=== PATIENT | female | born 1955 | race Caucasian/White ===

== ENCOUNTER 2021-11-10 14:05 | Outpatient (REF) | payer MEDICARE, SELFPAY ==
--- NOTE | ~2021-11-10 | CT_ITS ---
EXAMINATION: CT ANGIOGRAM HEAD AND NECK CLINICAL INFORMATION: Headache COMPARISON: Brain MRI 06/08/2005 TECHNIQUE: Noncontrast head CT was acquired. Test bolus sequences followed by intravenous administration 70 mL of Omnipaque 350 intravenous contrast. Helical imaging was performed in the axial plane from the mediastinum to the skull vertex. Delayed postcontrast imaging of the head was also performed. The data was processed at the molecular technologist's workstation for generation of MIP sequences. Three-dimensional volume rendered reformatted images were also generated at an offline 3-D workstation. This CT examination was performed using dose optimization techniques as appropriate, variously including the following: *Automated exposure control *Adjustment of mA and/or kV according to patient size (this includes techniques or standardized protocols for targeted exams where dose is matched to indication/reason for exam; i.e. extremities or head) *Use of iterative reconstruction technique DLP: 2117 mGy-cm FINDINGS: HEAD: No intracranial mass, intercerebral edema, hemorrhage, or midline shift is evident. The ventricles and sulci are stable in size and configuration. No extra-axial collections are appreciated. The paranasal sinuses are well aerated and clear. SOFT TISSUES AND LUNG APICES: Globes and retro-orbital structures are unremarkable. Normal appearance of the nutritional services host space and parapharyngeal fat. Major salivary glands and thyroid gland are unremarkable. No cervical lymphadenopathy. No mucosal space mass identified. Small 5 mm pleural-based nodule in the posterior right upper lobe on series 15-518 and 3 mm right apical nodule (please see morocho images). Lung apices otherwise clear. No acute fracture or suspicious osseous lesion. Advanced degenerative disc disease at C5-C6 and C6-C7. Milder disc degenerative changes in the upper thoracic spine. Likely chronic anterior wedge compression deformity of T7. Incompletely imaged left rib fracture deformities and evidence of prior left rib plating. NECK CTA: Normal caliber aortic arch. Normal three-vessel configuration of the great vessels. Arch origins are patent. Minimal luminal narrowing due to noncalcified plaque in the proximal left subclavian artery. Right subclavian arteries widely patent. Patent bilateral vertebral arteries with right-sided dominance. Common carotid arteries are widely patent. Coarse calcified plaque in the right carotid bifurcation and proximal ICA without luminal narrowing. Left carotid bifurcation is widely patent. Streak artifact from dental hardware at the level of the mandible. The cervical portions of the internal carotid arteries are widely patent bilaterally. CRANIAL CTA: Posterior circulation: Patent intradural right vertebral artery. The intradural left vertebral artery terminates primarily as a left PICA. Diminutive left vertebral artery is followed to the patent basilar. AICAs are patent bilaterally. SCA's are patent. Patent posterior communicating arteries bilaterally. Persistent circulation on the right with hypoplastic right P1 [employer] segment. Bilateral posterior cerebral arteries are widely patent. Anterior circulation: The petrous, cavernous and supraclinoid ICAs are patent. Anterior and middle cerebral arteries are patent. No aneurysm. Patent anterior communicating artery without aneurysm. No hemodynamically significant stenosis. No vascular malformation. Scant calcification of the cavernous carotid arteries bilaterally. Major dural venous sinuses opacify normally. CT/CT angio head neck IMPRESSION: 1. No intracranial hemorrhage, mass, or abnormal intracranial enhancement. 2. No aneurysm or vascular malformation. No evidence of dissection. 3. No hemodynamically significant arterial stenosis. 4. Patent major dural venous sinuses.
[2021-11-10] MEDS: iohexoL 350 MG/ML 100 ML INFUS..BTL IV (15:40)
== END 2021-11-10 14:06 | disposition home or self-care (01) ==
LOC: HO.CT 14:05
PROVIDERS: PCP Internal Medicine; Visit Provider Internal Medicine
DX: R51.9 Headache, unspecified (principal)
CPT/HCPCS: 70496; 70498; Q9967

== ENCOUNTER 2022-01-06 10:43 | Outpatient (REF) | payer MEDICARE, SELFPAY ==
--- NOTE | ~2022-01-06 | MM_ITS ---
EXAMINATION: BONE DENSITOMETRY CLINICAL INDICATION: Other specified disorders of bone density and structure. COMPARISON: Previous BD dated 08/03/2017 and baseline BD dated 11/11/2007. TECHNIQUE: Using a [employer] DXA System (software version: 13.1) manufactured by [email or web address], dual-energy x-ray absorptiometry was performed of the lumbar spine and left hip. The images are of good technical quality. Summary results are attached. FINDINGS: AP SPINE L1-L4: Current: BMD 1.175 g/cm2, Z-score 1.8, T-score 0.0, normal, 1.0% decrease from previous, 11.0% increase from baseline (<5% change is not significant). Prior: BMD 1.187 g/cm2. Baseline: BMD 1.059 g/cm2. LEFT FEMUR, NECK: Current: BMD 0.858 g/cm2, Z-score 0.5, T-score -1.3, osteopenia. Prior: BMD 0.849 g/cm2. Baseline: BMD 0.857 g/cm2. LEFT FEMUR, TOTAL: Current: BMD 0.858 g/cm2, Z-score 0.4, T-score -1.2, osteopenia, 6.2% decrease from previous, 3.2% decrease from baseline (<5% change is not significant). Prior: BMD 0.915 g/cm2. Baseline: BMD 0.886 g/cm2. IDENTIFIED RISK FACTORS: Height loss, history of fracture (adult), menopause. HISTORY OF FRACTURE: Humerus/shoulder. Clavicle, ribs/scapula. MEDICATIONS: Calcium supplements or multivitamin, vitamin D. MM/XR DEXA axial skeleton IMPRESSION: 1. DIAGNOSIS: Osteopenia based on the lowest T-score value of -1.3 in the femoral neck applying World Health Organization criteria. 2. 10-YEAR FRACTURE RISK PREDICTION, FRAX: Major osteoporotic fracture (clinical spine, forearm, hip or shoulder) 13.9%. Hip fracture 1.7%. 3. Treatment Recommendations: NOF guidelines recommend consideration for treatment in postmenopausal women and men age 50 and older presenting with the following: -A hip or vertebral (clinical or morphometric) fracture. -T-score less than or equal to -2.5 at the femoral neck or spine after appropriate evaluation to exclude secondary causes. -Low bone mass at the hip or spine and a 10-year fracture probability by FRAX of greater than or equal to 3% for hip fracture or greater than or equal to 20% for major osteoporotic fracture based on the [place] adapted WHO algorithm. 4. Other Recommendations: All treatment decisions require clinical judgment and consideration of individual patient factors, including patient preferences, comorbidities, previous drug use, risk factors not captured in the FRAX model (e.g. frailty, falls, vitamin D deficiency, increased bone turnover, interval significant decline in bone density) and possible under or overestimation of fracture risk by FRAX. Additional medical evaluation for secondary cause of low bone mineral density may be appropriate. FUTURE SCAN RECOMMENDATION: People with diagnosed cases of osteoporosis or at high risk for fracture should have regular bone mineral density tests. For patients eligible for Medicare, routine testing is allowed once every 2 years. The testing frequency can be increased to one year for patients who have rapidly progressing disease, those who are receiving or discontinuing medical therapy to restore bone mass, or have additional risk factors.
== END 2022-01-06 10:44 | disposition home or self-care (01) ==
LOC: HO.MAMMO 10:43
PROVIDERS: PCP Internal Medicine; Visit Provider Internal Medicine
DX: Z13.820 Encounter for screening for osteoporosis (principal); M85.852 Other specified disorders of bone density and structure, left thigh; Z78.0 Asymptomatic menopausal state
CPT/HCPCS: 77080

== ENCOUNTER 2022-10-31 09:28 | Outpatient (AMB) | payer MEDICARE, SELFPAY ==
[2022-10-31 09:31] VITALS: BP 118/76; PULSE 68; O2SAT 98; BMI 21.1
--- NOTE | 2022-10-31 09:31 | AM.OFFVISMDC ---
Intake Vital Signs 10/31/22 09:31 Height 5 ft 6 in Weight 131 lb BMI 21.1 BP 118/76 Blood Pressure Location Lt brachial Position Sitting Pulse 68 Pulse Source Pulse Oximeter Pulse Oximetry (%) 98 Oxygen Delivery Method Room Air Intake Visit Reasons: SWV Intake Note: Pt is here today for AWV. Allergies No Known Allergies [No Known Allergies*] Allergy (Verified 10/31/22 09:34) Medication List - Last Reconciled 10/31/22 by Traci Gomez MD gabapentin 300 mg PO DAILY lorazepam 0.5 mg PO DAILY PRN NS simvastatin 40 mg PO BEDTIME HPI SWV HPI Details Pt presents for annualInitiated the conversation about Advanced Directives. Advanced Directives help? patients prepare for current and future decisions about their medical treatment? and place of care. Discussed with patient that it is a process where a patients? current condition and prognosis are reviewed, their wishes for information? regarding their illness are elicited, and likely medical dilemmas are presented? and options discussed. The form can be amended as needed, reviewed yearly and? make changes as needed IPPE/AWV ? year old presents? for her ? Annual? Wellness Visit, initial visit.? Medical / Social History Reviewed? Past Medical History ?Yes? . ? [place]? of Care / Care Team list updated ?Yes . ? Surgical/Hospitalization? History ?Yes . ? Current Medications? (including OTC and supplements) ?Yes . ? Family History ?Yes? . ? Tobacco? Control form ?Yes . ? AUDIT-C (Alcohol use) form? ?Yes . ? Illicit drug use in Social? History ?Yes . ? Current diagnosis of? depression? ?No ? Appropriate PHQ2/PHQ9? completed ?Yes . ? Data entered by ?Medical? Furnace Door Tender and reviewed by provider ? Fall Risk ? Fall? History? Have you had any falls with? injury in the past year? ?No . ? Have you had two or more? falls in the past year? ?No . ? Fall Risk Assessment: ?No? falls in the past year . ? HRA filled out by? the patient, reviewed by Provider and scanned. ? IPPE/AWV ? Balance? [place]? ?Yes . ? Tandem? walk ?Yes . ? Walk and? Turn ?Yes . ? Rise from? sit to stand ?Yes . ?Vision? Corrective? lens ?Yes ? Vision? screen ? Up-to-date, has an appointment [] for vision? screening and glaucoma screening ?Hearing? Whisper? test ?pass .? Initiated the conversation about Advanced Directives. Advanced Directives help? patients prepare for current and future decisions about their medical treatment? and place of care. Discussed with patient that it is a process where a patients? current condition and prognosis are reviewed, their wishes for information? regarding their illness are elicited, and likely medical dilemmas are presented? and options discussed. The form can be amended as needed, reviewed yearly and? make changes as needed Written? Plan?Completed. See Patient? Documents. [facility] Medical History Annual physical exam Anxiety Arm pain, left Finger fracture, right Hyperlipidemia Normal colonoscopy Normal Pap smear Osteopenia of left femoral neck Sinusitis Stress incontinence in female Surgical History History of arthroscopy of right shoulder Status post lumbar spine surgery for decompression of spinal cord Family History (Updated 10/31/22 @ 09:37 by Vashti Hall Nena) Father Cancer Mother COPD (chronic obstructive pulmonary disease) Brother Substance use disorder Sister Substance use disorder Social History Housing: House Alcohol intake: current Alcohol intake frequency: holidays/special occasions only Alcohol type: hard liquor Patient Tobacco Use Status: Never used Tobacco e-Cigarette/Vaping Use: Never Used Current occupational status: employed Cognitive needs: No Hearing needs: No Vision needs: No Questionnaire Medicare Wellness Checkup [age] What gender do you identify with?: female During the past 4 weeks, how much have you been bothered by emotional problems such as feeling anxious, depressed, irritable, sad or downhearted, and blue?: not at all During the past 4 weeks, has your physical & emotional health limited your social activities with family, friends, neighbors, or groups?: not at all During the past 4 weeks, how much bodily pain have you generally had?: no pain During the past 4 weeks, was someone available to help you if you needed & wanted help?: yes, as much as I wanted During the past 4 weeks, what was the hardest physical activity you could do for at least 2 minutes?: very heavy Can you get to places out of walking distance without help? (For eg., can you travel alone on buses, taxis or drive your car?): Yes Can you go shopping for groceries or clothes without someone's help?: Yes Can you prepare your own meals?: Yes Can you do your housework without help?: Yes Because of any health problems, do you need the help of another person with your personal care needs such as eating, bathing, dressing or getting around the house?: No Can you handle your own money without help?: Yes During the past 4 weeks, how would you rate your health in general?: excellent During the past 4 weeks how have things been going for you?: very well; could hardly better Are you having difficulties driving your car?: no Do you always fasten your seat belt when you are in a car?: yes, usually During past 4 weeks, have you been bothered by the following: never: Falling or dizzy when standing up, Sexual problems?, Trouble eating well?, Teeth or denture problems?, Problems using the telephone? and Tiredness or fatigue? Have you fallen 2 or more times in the past year?: No Are you afraid of falling?: No Are you a smoker?: no During the past 4 weeks, how many drinks of wine, beer, or other alcoholic beverages did you have?: no alcohol at all Do you exercise for about 20 minutes 3 or more times a week?: yes, most of the time Have you been given information to help with the following?: no: Hazards in your house that might hurt you? and no: Keeping track of your medications? How often do you have trouble taking medicines the way you have been told to take them?: I always take medicine as prescribed How confident are you that you can control & manage most of your health problems?: very confident What is your race?: White Mini Mental State Exam (MMSE) Orientation What is the (year) (season) (date) (day) (month)?: year, season, date, day and month Where are we (state) (county) (town or city) (hospital) (floor)?: state, town or city, hospital/clinic and floor Registration Name of 3 unrelated objects clearly and slowly, then ask patient to repeat all 3 of them. (1st repeat determines score. Make sure they can repeat all three): object 1, object 2 and object 3 Attention & Calculation (CHOOSE ONE) Spell WORLD backwards (DLROW): 5 letters Recall Ask patient to repeat the 3 items from question #3.: object 1, object 2 and object 3 Language Show patient a wristwatch & ask what it is. Repeat for pencil.: watch and pencil Ask the patient to repeat the phrase 'No ifs, ands, or buts' after you.: correct Ask the patient to 'take a piece of paper with their right hand' 'fold paper in half' 'place paper on floor': take paper in right hand, fold paper in half and place paper on floor Print the sentence 'CLOSE YOUR EYES' on a piece. If patient actually closes eyes then score.: followed written direction Give patient a blank piece of paper & ask to write a sentence. Score if it contains a noun & verb.: sentence contains subject and verb Score Score: 28 Activity of Daily Living Bathing - sponge bath, tub bath or shower: receives no assistance (gets in/out by self, if usual bathing means Dressing - getting clothes from closets & drawers, including inner/outer garments & fasteners.: gets clothes & gets completely dressed without help Toileting - going to the 'toilet room' for urine/bowel elimination & cleaning self/arranging clothes: goes to toilet room, cleans self, arranges clothes without help Transfer: moves in & out of bed and chair without help (may use support object) Continence: controls urination/bowel movements completely by self Feeding: feeds self without help Total Score: 0 Information obtained from: patient Using telephone: independent Traveling: independent Shopping: independent Preparing meals: independent Housework: independent Taking medicine: independent Managing money: independent PHQ-9 Over the last 2 weeks, how often have you been bothered by any of the following problems? 1. Little interest or pleasure in doing things: not at all 2. Feeling down, depressed, or hopeless: not at all 3. Trouble falling or staying asleep, or sleeping too much: several days 4. Feeling tired or having little energy: not at all 5. Poor appetite or overeating: not at all 6. Feeling bad about yourself - or that you are a failure or have let yourself or your family down: not at all 7. Trouble concentrating on things, such as reading the newspaper or watching television: not at all 8. Moving or speaking so slowly that other people could have noticed. Or the opposite - being so fidgety or restless that you have been moving around a lot more than usual: not at all 9. Thoughts that you would be better off or of hurting yourself in some way: not at all Total score: 1 Depression Screening Interpretation: Negative Source: Developed by Drs. David Hurtado, Afshan Miranda, Quintin Winkler and colleagues, with an educational mary from [employer]. Review of Systems Const All systems reviewed & are unremarkable except as noted in HPI and below Reports no additional complaints Eyes Reports no additional complaints ENT Reports no additional complaints Card Reports no additional complaints Resp Reports no additional complaints GI Reports no additional complaints Reports no additional complaints Musc Reports no additional complaints Physical Exam Vital Signs: Last Vital Signs Pulse 68 10/31/22 09:31 BP 118/76 10/31/22 09:31 Pulse Ox 98 10/31/22 09:31 Oxygen Delivery Method Room Air 10/31/22 09:31 BMI result Body Mass Index 21.1 Const General: no acute distress HEENT Head: Yes normal to inspection Eyes General: appearance normal, both eyes and all related structures Neck Neck: Yes no lymphadenopathy and Yes supple Resp Effort & Inspection: normal respiratory effort Auscultation: clear to auscultation bilaterally Cardio Rhythm: regular rhythm Heart sounds: S1 normal heart sound present and S2 normal heart sound present GI Inspection: Yes normal to inspection Palpation (GI): Soft to palpation Percussion: Yes normal to percussion Auscultation: normal bowel sounds Assessment & Plan Assessment & Plan (1) Vitamin D deficiency: Code(s): E55.9 - Vitamin D deficiency, unspecified Plan: Patient will take 1000 units of vitamin-D 3 only in the wintertime (2) Hypothyroid: Code(s): E03.9 - Hypothyroidism, unspecified Plan: Monitor TSH (3) Hyperlipidemia: Code(s): E78.5 - Hyperlipidemia, unspecified Plan: Continue simvastatin (4) Annual physical exam: Code(s): Z00.00 - Encounter for general adult medical examination without abnormal findings Plan: Well-balanced diet ,regular physical activity discussed with the patient. she is up-to-date with the mammogram colonoscopy. 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 Panel Fast 365 Days E03.9 - Hypothyroidism, unspecified, E55.9 - Vitamin D deficiency, unspecified, E78.5 - Hyperlipidemia, unspecified, Z00.00 - Encounter for general adult medical examination without abnormal findings Complete Blood Count Auto Diff 365 Days E03.9 - Hypothyroidism, unspecified, E55.9 - Vitamin D deficiency, unspecified, E78.5 - Hyperlipidemia, unspecified, Z00.00 - Encounter for general adult medical examination without abnormal findings Lipid Panel 365 Days E03.9 - Hypothyroidism, unspecified, E55.9 - Vitamin D deficiency, unspecified, E78.5 - Hyperlipidemia, unspecified, Z00.00 - Encounter for general adult medical examination without abnormal findings TSH reflex Free T4 365 Days E03.9 - Hypothyroidism, unspecified, E55.9 - Vitamin D deficiency, unspecified, E78.5 - Hyperlipidemia, unspecified, Z00.00 - Encounter for general adult medical examination without abnormal findings Vitamin D 25-OH Total 365 Days E03.9 - Hypothyroidism, unspecified, E55.9 - Vitamin D deficiency, unspecified, E78.5 - Hyperlipidemia, unspecified, Z00.00 - Encounter for general adult medical examination without abnormal findings Quality Reporting (2019) Depression/Bipolar (159/160/161/177) PHQ-9: Total score: 1 Coding Level of Care Code Medicare Subsequent (G0439) Diagnoses Vitamin D deficiency E55.9 Hypothyroid E03.9 Hyperlipidemia E78.5 Annual physical exam Z00.00 CPT Codes Advance Care Planning - Time spent: 1-15 minutes, not on file ([id number]) Advance Care Planning Advance Care Planning discussion: Exists, not on file Forms completed: Health Care Proxy Time spent: 1-15 minutes, not on file
== END 2022-10-31 10:38 | disposition home or self-care (01) ==
PROVIDERS: Visit Provider Internal Medicine
DX: Z00.00 Encounter for general adult medical examination without abnormal findings (principal); E55.9 Vitamin D deficiency, unspecified; E03.9 Hypothyroidism, unspecified; E78.5 Hyperlipidemia, unspecified
CPT/HCPCS: 1124F; G0439

== ENCOUNTER 2023-11-06 08:49 | Outpatient (AMB) | payer MEDICARE, SELFPAY ==
--- NOTE | 2023-11-06 08:59 | AM.OFFVISMDC ---
Intake Vital Signs 11/06/23 09:00 Height 5 ft 6 in Weight 132 lb BMI 21.3 BP 122/70 Blood Pressure Location Lt brachial Position Sitting Pulse 73 Pulse Source Pulse Oximeter Pulse Oximetry (%) 98 Oxygen Delivery Method Room Air Intake Visit Reasons: SWV Intake Note: Pt is here today for her SWV Allergies No Known Allergies [No Known Allergies*] Allergy (Verified 11/06/23 09:01) Medication List - Last Reconciled 11/06/23 by Traci Gomez MD diclofenac sodium 50 mg PO BID gabapentin 300 mg PO DAILY lorazepam 0.5 mg PO DAILY PRN NS simvastatin 40 mg PO BEDTIME HPI SWV HPI Details Patient presents for annual visit. She complains of insomnia on and off for 2 years. Patient has been taking melatonin and Benadryl but is concerned about becoming dependent on them. She is not aware of any triggering problems. 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 Initiated the conversation about Advanced Directives. Advanced Directives help? patients prepare for current and future decisions about their medical treatment? and place of care. Discussed with patient that it is a process where a patients? current condition and prognosis are reviewed, their wishes for information? regarding their illness are elicited, and likely medical dilemmas are presented? and options discussed. The form can be amended as needed, reviewed yearly and? make changes as needed IPPE/AWV ? year old presents? for her ? Annual? Wellness Visit, initial visit.? Medical / Social History Reviewed? Past Medical History ?Yes? . ? [place]? of Care / Care Team list updated ?Yes . ? Surgical/Hospitalization? History ?Yes . ? Current Medications? (including OTC and supplements) ?Yes . ? Family History ?Yes? . ? Tobacco? Control form ?Yes . ? AUDIT-C (Alcohol use) form? ?Yes . ? Illicit drug use in Social? History ?Yes . ? Current diagnosis of? depression? ?No ? Appropriate PHQ2/PHQ9? completed ?Yes . ? Data entered by ?[facility] and reviewed by provider ? Fall Risk ? Fall? History? Have you had any falls with? injury in the past year? ?No . ? Have you had two or more? falls in the past year? ?No . ? Fall Risk Assessment: ?No? falls in the past year . ? HRA filled out by? the patient, reviewed by Provider and scanned. ? IPPE/AWV ? Balance? [place]? ?Yes . ? Tandem? walk ?Yes . ? Walk and? Turn ?Yes . ? Rise from? sit to stand ?Yes . ?Vision? Corrective? lens ?Yes ? Vision? screen ? Up-to-date, has an appointment [] for vision? screening and glaucoma screening ?Hearing? Whisper? test ?pass .? Initiated the conversation about Advanced Directives. Advanced Directives help? patients prepare for current and future decisions about their medical treatment? and place of care. Discussed with patient that it is a process where a patients? current condition and prognosis are reviewed, their wishes for information? regarding their illness are elicited, and likely medical dilemmas are presented? and options discussed. The form can be amended as needed, reviewed yearly and? make changes as needed Written? Plan?Completed. See Patient? Documents. [facility] Medical History (Updated 11/06/23 @ 10:08 by Traci Gomez MD) Sinusitis Arm pain, left Annual physical exam Normal Pap smear Normal colonoscopy Finger fracture, right Stress incontinence in female Osteopenia of left femoral neck Anxiety Hyperlipidemia Surgical History Status post lumbar spine surgery for decompression of spinal cord History of arthroscopy of right shoulder Family History Father Cancer Mother COPD (chronic obstructive pulmonary disease) Brother Substance use disorder Sister Substance use disorder Social History Housing: House Alcohol intake: current Alcohol intake frequency: holidays/special occasions only Alcohol type: hard liquor Patient Tobacco Use Status: Never used Tobacco e-Cigarette/Vaping Use: Never Used Current occupational status: employed Cognitive needs: No Hearing needs: No Vision needs: No Questionnaire Medicare Wellness Checkup [age] What gender do you identify with?: female During the past 4 weeks, how much have you been bothered by emotional problems such as feeling anxious, depressed, irritable, sad or downhearted, and blue?: slightly During the past 4 weeks, has your physical & emotional health limited your social activities with family, friends, neighbors, or groups?: not at all During the past 4 weeks, how much bodily pain have you generally had?: no pain During the past 4 weeks, was someone available to help you if you needed & wanted help?: yes, as much as I wanted During the past 4 weeks, what was the hardest physical activity you could do for at least 2 minutes?: very heavy Can you get to places out of walking distance without help? (For eg., can you travel alone on buses, taxis or drive your car?): Yes Can you go shopping for groceries or clothes without someone's help?: Yes Can you prepare your own meals?: Yes Can you do your housework without help?: Yes Because of any health problems, do you need the help of another person with your personal care needs such as eating, bathing, dressing or getting around the house?: No Can you handle your own money without help?: Yes During the past 4 weeks, how would you rate your health in general?: excellent During the past 4 weeks how have things been going for you?: pretty well Are you having difficulties driving your car?: no Do you always fasten your seat belt when you are in a car?: yes, usually During past 4 weeks, have you been bothered by the following: never: Falling or dizzy when standing up, Sexual problems?, Trouble eating well?, Teeth or denture problems?, Problems using the telephone? and Tiredness or fatigue? Have you fallen 2 or more times in the past year?: No Are you afraid of falling?: No Are you a smoker?: no During the past 4 weeks, how many drinks of wine, beer, or other alcoholic beverages did you have?: no alcohol at all Do you exercise for about 20 minutes 3 or more times a week?: yes, all the time Have you been given information to help with the following?: no: Hazards in your house that might hurt you? and no: Keeping track of your medications? How often do you have trouble taking medicines the way you have been told to take them?: I always take medicine as prescribed How confident are you that you can control & manage most of your health problems?: very confident What is your race?: White Mini Mental State Exam (MMSE) Orientation What is the (year) (season) (date) (day) (month)?: year, season, date, day and month Where are we (state) (county) (town or city) (hospital) (floor)?: state, county, town or city, hospital/clinic and floor Registration Name of 3 unrelated objects clearly and slowly, then ask patient to repeat all 3 of them. (1st repeat determines score. Make sure they can repeat all three): object 1, object 2 and object 3 Attention & Calculation (CHOOSE ONE) Spell WORLD backwards (DLROW): 5 letters Recall Ask patient to repeat the 3 items from question #3.: object 1, object 2 and object 3 Language Show patient a wristwatch & ask what it is. Repeat for pencil.: watch and pencil Ask the patient to repeat the phrase 'No ifs, ands, or buts' after you.: correct Ask the patient to 'take a piece of paper with their right hand' 'fold paper in half' 'place paper on floor': take paper in right hand, fold paper in half and place paper on floor Print the sentence 'CLOSE YOUR EYES' on a piece. If patient actually closes eyes then score.: followed written direction Give patient a blank piece of paper & ask to write a sentence. Score if it contains a noun & verb.: sentence contains subject and verb Score Score: 29 PHQ-9 Over the last 2 weeks, how often have you been bothered by any of the following problems? 1. Little interest or pleasure in doing things: not at all 2. Feeling down, depressed, or hopeless: not at all 3. Trouble falling or staying asleep, or sleeping too much: not at all 4. Feeling tired or having little energy: not at all 5. Poor appetite or overeating: not at all 6. Feeling bad about yourself - or that you are a failure or have let yourself or your family down: not at all 7. Trouble concentrating on things, such as reading the newspaper or watching television: not at all 8. Moving or speaking so slowly that other people could have noticed. Or the opposite - being so fidgety or restless that you have been moving around a lot more than usual: not at all 9. Thoughts that you would be better off or of hurting yourself in some way: not at all Total score: 0 Source: Developed by Drs. David Hurtado, Afshan Miranda, Quintin Winkler and colleagues, with an educational mary from [employer] and some sugar. Review of Systems Const All systems reviewed & are unremarkable except as noted in HPI and below Reports no additional complaints Eyes Reports no additional complaints ENT Reports no additional complaints Card Reports no additional complaints Resp Reports no additional complaints GI Reports no additional complaints Reports no additional complaints Physical Exam Vital Signs: Last Vital Signs Pulse 73 11/06/23 09:00 BP 122/70 11/06/23 09:00 Pulse Ox 98 11/06/23 09:00 Oxygen Delivery Method Room Air 11/06/23 09:00 BMI result Body Mass Index 21.3 Const General: no acute distress HEENT Head: Yes normal to inspection Ears: hearing grossly normal bilaterally Eyes General: appearance normal, both eyes and all related structures Neck Neck: Yes no lymphadenopathy and Yes supple Resp Effort & Inspection: normal respiratory effort Auscultation: clear to auscultation bilaterally Cardio Rhythm: regular rhythm Heart sounds: S1 normal heart sound present and S2 normal heart sound present GI Inspection: Yes normal to inspection Palpation (GI): Soft to palpation Percussion: Yes normal to percussion Auscultation: normal bowel sounds Skin General skin exam: no rashes or lesions noted Extrem General: Yes no clubbing, cyanosis or edema Assessment & Plan Assessment & Plan (1) Hyperlipidemia: Code(s): E78.5 - Hyperlipidemia, unspecified Plan: cont statin, patient will have fasting blood work at [facility] (2) Annual physical exam: Code(s): Z00.00 - Encounter for general adult medical examination without abnormal findings Plan: Well-balanced diet regular exercise discussed with the patient. She is up-to-date with the mammogram colonoscopy and DEXA (3) Vitamin D deficiency: Code(s): E55.9 - Vitamin D deficiency, unspecified Plan: Continue vitamin-D supplement (4) Insomnia: Code(s): G47.00 - Insomnia, unspecified Plan: Sleep hygiene stress management and mindfulness discussed with the patient. She was advised to avoid taking sleeping aids on regular basis Orders: Orders Complete Blood Count Auto Diff Today E03.9 - Hypothyroidism, unspecified, E55.9 - Vitamin D deficiency, unspecified, E78.5 - Hyperlipidemia, unspecified, Z00.00 - Encounter for general adult medical examination without abnormal findings Lipid Panel Today E03.9 - Hypothyroidism, unspecified, E55.9 - Vitamin D deficiency, unspecified, E78.5 - Hyperlipidemia, unspecified, Z00.00 - Encounter for general adult medical examination without abnormal findings Vitamin D 25-OH Total Today E03.9 - Hypothyroidism, unspecified, E55.9 - Vitamin D deficiency, unspecified, E78.5 - Hyperlipidemia, unspecified, Z00.00 - Encounter for general adult medical examination without abnormal findings Comprehensive [place]. Panel Fast Today E03.9 - Hypothyroidism, unspecified, E55.9 - Vitamin D deficiency, unspecified, E78.5 - Hyperlipidemia, unspecified, Z00.00 - Encounter for general adult medical examination without abnormal findings TSH reflex Free T4 Today E03.9 - Hypothyroidism, unspecified, E55.9 - Vitamin D deficiency, unspecified, E78.5 - Hyperlipidemia, unspecified, Z00.00 - Encounter for general adult medical examination without abnormal findings Medications: Refilled lorazepam 0.5 mg PO DAILY PRN 30 tabs 0RF anxiety NS Quality Reporting (2019) Depression/Bipolar (159/160/161/177) PHQ-9: Total score: 0 Coding Level of Care Code Medicare Subsequent (G0439) Diagnoses Hyperlipidemia E78.5 Annual physical exam Z00.00 Vitamin D deficiency E55.9 Insomnia G47.00 CPT Codes Advance Care Planning - Advance Care Planning discussion: On file, no changes ([id number]) Advance Care Planning - Time spent: 1-15 minutes, on File ([id number]) Advance Care Planning Advance Care Planning discussion: On file, no changes Forms completed: Health Care Proxy Time spent: 1-15 minutes, on File
[2023-11-06 09:00] VITALS: BP 122/70; PULSE 73; O2SAT 98; BMI 21.3
== END 2023-11-06 10:09 | disposition home or self-care (01) ==
PROVIDERS: PCP Internal Medicine; Visit Provider Internal Medicine
DX: Z00.00 Encounter for general adult medical examination without abnormal findings (principal); E78.5 Hyperlipidemia, unspecified; E55.9 Vitamin D deficiency, unspecified; G47.00 Insomnia, unspecified
CPT/HCPCS: 1123F; G0439

== ENCOUNTER 2024-01-03 12:30 | Outpatient (AMB) | payer MEDICARE, SELFPAY ==
[2024-01-03 12:31] VITALS: BP 126/78; PULSE 74; O2SAT 99; BMI 21.5
--- NOTE | 2024-01-03 12:31 | MHC.PC.OV ---
Vital Signs 01/03/24 12:31 Height 5 ft 6 in Weight 133 lb BMI 21.5 BP 126/78 Blood Pressure Location Lt brachial Position Sitting Pulse 74 Pulse Source Pulse Oximeter Pulse Oximetry (%) 99 Oxygen Delivery Method Room Air Intake Visit Reasons: anxiety Intake Note: Pt is here today for a sick visit. Pt c/o anxiety and sleeping issues. Allergies No Known Allergies [No Known Allergies*] Allergy (Verified 01/03/24 12:31) Medication List - Last Reconciled 01/03/24 by Traci Gomez MD diclofenac sodium 50 mg PO BID gabapentin 300 mg PO DAILY hydroxyzine HCl 10 mg PO BEDTIME PRN lorazepam 0.5 mg PO DAILY PRN NS simvastatin 40 mg PO BEDTIME Tobacco use date assessed: 01/03/24 Fall risk assessment: No Falls in past year Last assessed Fall Risk: 01/03/24 Dental Screening Dental Screen Date: 01/03/24 Did you have a dental visit in the last 12 months?: Yes Did you have a dental problem in the last 6 months where you did not have access to dental care?: No Was dental information given to patient?: Patient has dentist HPI anxiety HPI Details Pt complains of increased anxiety and stress related to her grandson who was charged with driving under the influence of alcohol. She complains of insomnia and decreased appetite but denies suicide ideation. She is looking for a counselor [facility] Medical History Sinusitis Arm pain, left Annual physical exam Normal Pap smear Normal colonoscopy Finger fracture, right Stress incontinence in female Osteopenia of left femoral neck Anxiety Hyperlipidemia Surgical History Status post lumbar spine surgery for decompression of spinal cord History of arthroscopy of right shoulder Family History Father Cancer Mother COPD (chronic obstructive pulmonary disease) Brother Substance use disorder Sister Substance use disorder Social History Housing: House Alcohol intake: current Alcohol intake frequency: holidays/special occasions only Alcohol type: hard liquor Patient Tobacco Use Status: Never used Tobacco e-Cigarette/Vaping Use: Never Used service: No Current occupational status: employed Cognitive needs: No Hearing needs: No Vision needs: No Questionnaire Thrive Questionnaire Date Thrive assessed: 11/03/23 I am a: Patient What is your living situation today?: I have a steady place to live Within the past 12 months, did the food you bought not last and you didn't have the money to get more?: Never true Within the past 12 months, did you worry whether your food would run out before you got money to buy more?: Never true Do you have trouble paying for medicines?: No Do you have trouble getting transportation to medical appointments?: No Do you have trouble paying your heating and electricity bill?: No Do you have trouble taking care of your child, family member or friend?: No Do you have trouble with day-to-day activities such as bathing, preparing meals, shopping, managing finances, etc.?: No Are you currently unemployed and looking for a job?: No Are you interested in more education?: Yes Please select the resources that you would like help with: None Currently or been in a relationship where the following occur: No concerns reported THRIVE Score: 0 AUDIT C Alcohol Use Questionnaire (AUDIT-C) 1. How often do you have a drink containing alcohol?: Never 3. How often do you have six or more drinks on one occasion?: Never Total Score: 0 KIT-7 AMB Questionnaire KIT-7 Date KIT - 7 assessed: 08/24/21 Source: Developed by Drs. David Hurtado, Afshan Miranda, Quintin Winkler and colleagues, with an educational mary from [employer]. Review of Systems Const All systems reviewed & are unremarkable except as noted in HPI and below ENT Reports no additional complaints Card Reports no additional complaints Resp Reports no additional complaints GI Reports no additional complaints Reports no additional complaints Physical exam (Primary Care) Vital Signs: Last Vital Signs Pulse 74 01/03/24 12:31 BP 126/78 01/03/24 12:31 Pulse Ox 99 01/03/24 12:31 Oxygen Delivery Method Room Air 01/03/24 12:31 BMI result Body Mass Index 21.5 Tobacco/Smoking Status: Tobacco use Status Tobacco use date assessed 01/03/24 01/03/24 12:37 Patient Tobacco Use Status Never used Tobacco 01/03/24 12:37 e-Cigarette/Vaping Use Never Used 01/03/24 12:37 Thrive Assessment: Date of Thrive Assessment Date Thrive assessed 11/03/23 01/03/24 12:37 Currently or been in a relationship where the following occur: No concerns reported HENMT Head: Yes normal to inspection Neck Neck: Yes supple Resp Effort & Inspection: normal respiratory effort Auscultation: clear to auscultation bilaterally Cardio Rhythm: regular rhythm Heart sounds: S1 normal heart sound present and S2 normal heart sound present Assessment and Plan Assessment & Plan (1) Anxiety: Code(s): F41.9 - Anxiety disorder, unspecified Plan: Stress management mindfulness discussed with the patient. She will start counseling. Zoloft 25 mg daily will be started patient will follow-up in 1 month. She can continue hydroxyzine as needed (2) Hypothyroid: Code(s): E03.9 - Hypothyroidism, unspecified Plan: Monitor TSH Medications: New sertraline 25 mg PO DAILY 30 tabs 1RF Coding Level of Care Code Est Pt Level 3 (46171) Diagnoses Anxiety F41.9 Hypothyroid E03.9
== END 2024-01-03 14:01 | disposition home or self-care (01) ==
PROVIDERS: PCP Internal Medicine; Visit Provider Internal Medicine
DX: F41.9 Anxiety disorder, unspecified (principal); E03.9 Hypothyroidism, unspecified

== ENCOUNTER → 2024-01-03 12:30 | Outpatient (BNVA) | payer MEDICARE, SELFPAY | PROVIDERS: PCP Internal Medicine; Visit Provider Internal Medicine | DX: F41.1 Generalized anxiety disorder (principal); E03.9 Hypothyroidism, unspecified | CPT/HCPCS: 99212 ==

== ENCOUNTER 2024-02-04 14:09 | Outpatient (AMB) | payer MEDICARE, SELFPAY ==
--- NOTE | 2024-02-04 14:08 | A.OFFPC_ITS ---
Intake Visit Reasons: 1 months f/up per dr Gomez Allergies No Known Allergies [No Known Allergies*] Allergy (Verified 02/04/24 14:08) Medication List - Last Reconciled 02/04/24 by Traci Gomez MD diclofenac sodium 50 mg PO BID gabapentin 300 mg PO DAILY hydroxyzine HCl 10 mg PO BEDTIME PRN lorazepam 0.5 mg PO DAILY PRN NS sertraline 25 mg PO DAILY simvastatin 40 mg PO BEDTIME Tobacco use date assessed: 02/04/24 Dental Screening Dental Screen Date: 01/03/24 HPI 1 months f/up per dr Gomez HPI Details This is a telehealth visit. Patient is for follow-up of anxiety insomnia slightly better since started taking Zoloft. She has been under lot of stress related to her grandson driving under influence ongoing court case. [facility] History Sinusitis Arm pain, left Annual physical exam Normal Pap smear Normal colonoscopy Finger fracture, right Stress incontinence in female Osteopenia of left femoral neck Anxiety Hyperlipidemia Surgical History Status post lumbar spine surgery for decompression of spinal cord History of arthroscopy of right shoulder Family History Father Cancer Mother COPD (chronic obstructive pulmonary disease) Brother Substance use disorder Sister Substance use disorder Social History Housing: House Alcohol intake: current Alcohol intake frequency: holidays/special occasions only Alcohol type: hard liquor Patient Tobacco Use Status: Never used Tobacco e-Cigarette/Vaping Use: Never Used service: No Current occupational status: employed Cognitive needs: No Hearing needs: No Vision needs: No Questionnaire Thrive Questionnaire Date Thrive assessed: 11/03/23 I am a: Patient What is your living situation today?: I have a steady place to live Within the past 12 months, did the food you bought not last and you didn't have the money to get more?: Never true Within the past 12 months, did you worry whether your food would run out before you got money to buy more?: Never true Do you have trouble paying for medicines?: No Do you have trouble getting transportation to medical appointments?: No Do you have trouble paying your heating and electricity bill?: No Do you have trouble taking care of your child, family member or friend?: No Do you have trouble with day-to-day activities such as bathing, preparing meals, shopping, managing finances, etc.?: No Are you currently unemployed and looking for a job?: No Are you interested in more education?: Yes Please select the resources that you would like help with: None Currently or been in a relationship where the following occur: No concerns reported THRIVE Score: 0 KIT-7 AMB Questionnaire KIT-7 Date KIT - 7 assessed: 08/24/21 Source: Developed by Drs. David Hurtado, Afshan Miranda, Quintin Winkler and colleagues, with an educational mary from [employer]. Review of Systems Const All systems reviewed & are unremarkable except as noted in HPI and below Reports no additional complaints Eyes Reports no additional complaints ENT Reports no additional complaints Card Reports no additional complaints Resp Reports no additional complaints GI Reports no additional complaints Reports no additional complaints Musc Reports no additional complaints Physical exam (Primary Care) Tobacco/Smoking Status: Tobacco use Status Tobacco use date assessed 02/04/24 02/04/24 14:09 Patient Tobacco Use Status Never used Tobacco 02/04/24 14:09 e-Cigarette/Vaping Use Never Used 02/04/24 14:09 Thrive Assessment: Date of Thrive Assessment Date Thrive assessed 11/03/23 02/04/24 14:09 Currently or been in a relationship where the following occur: No concerns reported Telehealth Telehealth Telehealth Platform: Telephone Location of provider rendering services: practice address Location of patient: address on file Patient Identification confirmed using: Name, : Yes Telehealth method: video Patient verbally consented to treatment: Yes Patient verbally consented to billing insurance company: Yes Patient informed of any privacy concerns related to visit: Yes Minutes spent on Phone/Video with Pt.: 15 Coding Level of Care Code Tele Est Pt Level 3 (47814) Diagnoses Anxiety F41.9 Assessment & Plan Assessment & Plan (1) Anxiety: Code(s): F41.9 - Anxiety disorder, unspecified Category: Medical Plan: Continue 25 mg of Zoloft patient did not want to increase the dose. hydroxyzine p.r.n. for insomnia. Stress management discussed with the patient. Medications: Refilled sertraline 25 mg PO DAILY 30 tabs 3RF hydroxyzine HCl 10 mg PO BEDTIME PRN 60 tabs 0RF sleep
== END 2024-02-04 14:53 | disposition home or self-care (01) ==
LOC: HO.HMCC 14:09
PROVIDERS: PCP Internal Medicine; Visit Provider Internal Medicine
DX: F41.9 Anxiety disorder, unspecified (principal)

== ENCOUNTER → 2024-02-04 14:09 | Outpatient (BNVA) | payer MEDICARE, SELFPAY | PROVIDERS: PCP Internal Medicine; Visit Provider Internal Medicine ==

== ENCOUNTER 2024-03-31 12:58 | Outpatient (AMB) | payer MEDICARE, SELFPAY ==
[2024-03-31 13:14] VITALS: BP 124/76; PULSE 74; O2SAT 98; BMI 21.6
--- NOTE | 2024-03-31 13:14 | MHC.PC.OV ---
Vital Signs 03/31/24 13:14 Height 5 ft 6 in Weight 134 lb BMI 21.6 BP 124/76 Blood Pressure Location Lt brachial Position Sitting Pulse 74 Pulse Source Pulse Oximeter Pulse Oximetry (%) 98 Oxygen Delivery Method Room Air Intake Visit Reasons: low back pain Intake Note: Pt is here today for sick visit. Pt c/o lower back pain. Pt states that she fell and broke her wrist and had surgery on it on Sunday. Allergies No Known Allergies [No Known Allergies*] Allergy (Verified 03/31/24 13:22) Medication List - Last Reconciled 03/31/24 by Traci Gomez MD diclofenac sodium 50 mg PO BID gabapentin 300 mg PO BID hydroxyzine HCl 10 mg PO BEDTIME PRN lorazepam 0.5 mg PO DAILY PRN NS sertraline 25 mg PO DAILY simvastatin 40 mg PO BEDTIME Tobacco use date assessed: 03/31/24 Fall risk assessment: 1 Fall in past year Last assessed Fall Risk: 03/31/24 Dental Screening Dental Screen Date: 01/03/24 HPI low back pain HPI Details Pt c/o worsening R side LBP since the a fall 3 weeks ago. The pain is worse in the morning when getting up from bed. She has been able to walk on a treadmill denies weakness or numbness in lower extremities. Pt had R wrist surgery for displaced fracture and will be starting physical therapy. [facility] Medical History (Updated 03/31/24 @ 13:51 by Traci Gomez MD) Sinusitis Arm pain, left Annual physical exam Normal Pap smear Normal colonoscopy Finger fracture, right Stress incontinence in female Osteopenia of left femoral neck Anxiety Hyperlipidemia Surgical History (Updated 03/31/24 @ 13:26 by TERESITA Miguel) History of surgery on right wrist Status post lumbar spine surgery for decompression of spinal cord History of arthroscopy of right shoulder Family History Father Cancer Mother COPD (chronic obstructive pulmonary disease) Brother Substance use disorder Sister Substance use disorder Social History Housing: House Alcohol intake: current Alcohol intake frequency: holidays/special occasions only Alcohol type: hard liquor Patient Tobacco Use Status: Never used Tobacco e-Cigarette/Vaping Use: Never Used service: No Current occupational status: employed Cognitive needs: No Hearing needs: No Vision needs: No Questionnaire Thrive Questionnaire Date Thrive assessed: 11/03/23 I am a: Patient What is your living situation today?: I have a steady place to live Within the past 12 months, did the food you bought not last and you didn't have the money to get more?: Never true Within the past 12 months, did you worry whether your food would run out before you got money to buy more?: Never true Do you have trouble paying for medicines?: No Do you have trouble getting transportation to medical appointments?: No Do you have trouble paying your heating and electricity bill?: No Do you have trouble taking care of your child, family member or friend?: No Do you have trouble with day-to-day activities such as bathing, preparing meals, shopping, managing finances, etc.?: No Are you currently unemployed and looking for a job?: No Are you interested in more education?: Yes Please select the resources that you would like help with: None Currently or been in a relationship where the following occur: No concerns reported THRIVE Score: 0 KIT-7 AMB Questionnaire KIT-7 Date KIT - 7 assessed: 08/24/21 Source: Developed by Drs. David Hurtado, Afshan Miranda, Quintin Winkler and colleagues, with an educational mary from [employer]. Review of Systems Const All systems reviewed & are unremarkable except as noted in HPI and below Card Reports no additional complaints Resp Reports no additional complaints GI Reports no additional complaints Reports no additional complaints Physical exam (Primary Care) Vital Signs: Last Vital Signs Pulse 74 03/31/24 13:14 BP 124/76 03/31/24 13:14 Pulse Ox 98 03/31/24 13:14 Oxygen Delivery Method Room Air 03/31/24 13:14 BMI result Body Mass Index 21.6 Tobacco/Smoking Status: Tobacco use Status Tobacco use date assessed 03/31/24 03/31/24 13:26 Patient Tobacco Use Status Never used Tobacco 03/31/24 13:15 e-Cigarette/Vaping Use Never Used 03/31/24 13:15 Thrive Assessment: Date of Thrive Assessment Date Thrive assessed 11/03/23 03/31/24 13:15 Currently or been in a relationship where the following occur: No concerns reported Const General: no acute distress HENMT Head: Yes normal to inspection Face and sinus: Yes normal facial exam Resp Auscultation: clear to auscultation bilaterally Cardio Rhythm: regular rhythm Heart sounds: S1 normal heart sound present and S2 normal heart sound present Back/Spine/Pelvis Other: Decreased range of motion lumbar spine paraspinal tenderness right more than left, straight leg rising 90 degrees bilaterally, motor strength 5/5 bilaterally deep tendon reflexes 2+ bilaterally Coding Level of Care Code Est Pt Level 3 (41627) Diagnoses Lumbar spine strain S39.012A Assessment & Plan Assessment & Plan (1) Lumbar spine strain: Code(s): S39.012A - Strain of muscle, fascia and tendon of lower back, initial encounter Category: Medical Plan: Check x-ray and patient was advised to start lower back exercises. She will be referred to fist go therapy as needed. Gabapentin will be increased to 300 mg twice a day Orders: Orders XR lumbar spine 2-3V Today S39.012A - Strain of muscle, fascia and tendon of lower back, initial encounter Medications: Changed From gabapentin 300 mg PO DAILY 90 caps 3RF To gabapentin 300 mg PO BID 180 caps 3RF
== END 2024-03-31 14:09 | disposition home or self-care (01) ==
PROVIDERS: PCP Internal Medicine; Visit Provider Internal Medicine
DX: S39.012A Strain of muscle, fascia and tendon of lower back, initial encounter (principal)

== ENCOUNTER 2024-03-31 12:58 | Outpatient (REF) | payer MEDICARE, SELFPAY ==
--- NOTE | ~2024-03-31 | XR_ITS ---
EXAMINATION: XR LUMBOSACRAL SPINE CLINICAL INFORMATION: S39.012A - Strain of muscle, fascia and tendon of lower back, initial encounter. COMPARISON: None available. TECHNIQUE: Three views of the lumbosacral spine. FINDINGS: Diffuse demineralization. Degenerative changes in the bilateral sacroiliac joints. Facet arthritis in the ycy-je-bsrvv lumbar spine. Atherosclerotic aortoiliac calcifications. Iexovlbx-vu-ynnzlk multilevel lumbar spondylosis. Grade 1 anterolisthesis of L4 on L5 with moderate loss of disc space height. Marked degenerative changes with loss of disc space height at L5-S1, and L2-L3. XR/XR lumbar spine 2-3V IMPRESSION: Gdbaglha-he-rtjbkp multilevel lumbar spondylosis with facet arthritis. This study was presented today to April 01, 2024 for interpretation. Stat results provided at this time as requested by referring provider. Electronically signed by: Alina Espinoza MD 04/01/2024 01:18 PM JENNIE
== END 2024-03-31 12:59 | disposition home or self-care (01) ==
LOC: HO.HMGCX 12:58
PROVIDERS: PCP Internal Medicine; Visit Provider Internal Medicine
DX: S39.012A Strain of muscle, fascia and tendon of lower back, initial encounter (principal)
CPT/HCPCS: 72100; 99212

== ENCOUNTER 2024-08-25 15:46 | Outpatient (REF) | payer MEDICARE, SELFPAY | END 2024-08-25 15:47 | disposition home or self-care (01) | LOC: HO.MAMMO 15:46 | PROVIDERS: PCP Internal Medicine; Visit Provider Internal Medicine | DX: Z12.31 Encounter for screening mammogram for malignant neoplasm of breast (principal) | CPT/HCPCS: 77063; 77067 ==

== ENCOUNTER → 2024-08-25 16:00 | Outpatient (BNV) | payer MEDICARE, SELFPAY | PROVIDERS: PCP Internal Medicine; Visit Provider Internal Medicine | DX: Z12.31 Encounter for screening mammogram for malignant neoplasm of breast (principal) | CPT/HCPCS: 77063; 77067 ==

== ENCOUNTER 2024-09-01 11:13 | Outpatient (AMB) | payer MEDICARE, SELFPAY ==
[2024-09-01 11:17] VITALS: BP 106/66; PULSE 71; RESP 18; TEMP 36.5; O2SAT 97; BMI 21.9
--- NOTE | 2024-09-01 11:17 | A.OFFPC_ITS ---
Vital Signs 09/01/24 11:17 Height 5 ft 6 in Weight 136 lb BMI 21.9 BP 106/66 Blood Pressure Location Lt brachial Position Sitting Respiration 18 Pulse 71 Pulse Source Pulse Oximeter Temp 97.7 F Temp Source Oral Pulse Oximetry (%) 97 Oxygen Delivery Method Room Air Intake Visit Reasons: f/u Intake Note: Pt is here today for a follow up visit. Pt states that [place]. Allergies No Known Allergies [No Known Allergies*] Allergy (Verified 09/01/24 11:24) Medication List - Last Reconciled 09/01/24 by Traci Gomez MD gabapentin 300 mg PO BID hydroxyzine HCl 10 mg PO BEDTIME PRN lorazepam 0.5 mg PO DAILY PRN NS sertraline 25 mg PO DAILY simvastatin 40 mg PO BEDTIME Tobacco use date assessed: 09/01/24 Fall risk assessment: 1 Fall in past year Last assessed Fall Risk: 09/01/24 Dental Screening Dental Screen Date: 09/01/24 Did you have a dental visit in the last 12 months?: Yes Did you have a dental problem in the last 6 months where you did not have access to dental care?: No Was dental information given to patient?: Patient has dentist HPI f/u HPI Details Pt presents for follow-up of chronic anxiety and hyperlipidemia stable on current medications. Patient bought a house in [place] and is moving in the beginning of September. [facility] Medical History (Updated 09/01/24 @ 16:13 by Traci Gomez MD) Sinusitis Arm pain, left Annual physical exam Normal Pap smear Normal colonoscopy Finger fracture, right Stress incontinence in female Osteopenia of left femoral neck Anxiety Hyperlipidemia Surgical History History of surgery on right wrist Status post lumbar spine surgery for decompression of spinal cord History of arthroscopy of right shoulder Family History Father Cancer Mother COPD (chronic obstructive pulmonary disease) Brother Substance use disorder Sister Substance use disorder Social History Housing: House Alcohol intake: current Alcohol intake frequency: holidays/special occasions only Alcohol type: hard liquor Patient Tobacco Use Status: Never used Tobacco e-Cigarette/Vaping Use: Never Used service: No Current occupational status: employed Cognitive needs: No Hearing needs: No Vision needs: No Questionnaire PHQ-9 Over the last 2 weeks, how often have you been bothered by any of the following problems? 1. Little interest or pleasure in doing things: not at all 2. Feeling down, depressed, or hopeless: not at all 3. Trouble falling or staying asleep, or sleeping too much: several days 4. Feeling tired or having little energy: several days 5. Poor appetite or overeating: not at all 6. Feeling bad about yourself - or that you are a failure or have let yourself or your family down: not at all 7. Trouble concentrating on things, such as reading the newspaper or watching te levision: not at all 8. Moving or speaking so slowly that other people could have noticed. Or the opposite - being so fidgety or restless that you have been moving around a lot more than usual: not at all 9. Thoughts that you would be better off or of hurting yourself in some way: not at all Total score: 2 Depression Screening Interpretation: Negative Depression Screening Done: Yes 91229 - PHQ-9 Billing: Yes Source: Developed by Drs. David Hurtado, Afshan Miranda, Quintin Winkler and colleagues, with an educational mary from [employer]. Thrive Questionnaire Date Thrive assessed: 09/01/24 I am a: Patient What is your living situation today?: I have a steady place to live Within the past 12 months, did the food you bought not last and you didn't have the money to get more?: Never true Within the past 12 months, did you worry whether your food would run out before you got money to buy more?: Never true Do you have trouble paying for medicines?: No Do you have trouble getting transportation to medical appointments?: No Do you have trouble paying your heating and electricity bill?: No Do you have trouble taking care of your child, family member or friend?: No Do you have trouble with day-to-day activities such as bathing, preparing meals, shopping, managing finances, etc.?: No Are you currently unemployed and looking for a job?: No Are you interested in more education?: No Please select the resources that you would like help with: None Currently or been in a relationship where the following occur: No concerns reported THRIVE Score: 0 AUDIT C Alcohol Use Questionnaire (AUDIT-C) 1. How often do you have a drink containing alcohol?: Never 3. How often do you have six or more drinks on one occasion?: Never Total Score: 0 KIT-7 AMB Questionnaire KIT-7 Date KIT - 7 assessed: 09/01/24 Feeling nervous, anxious, or on edge: 0 = Not at all Not being able to stop or control worryin = Not at all Worrying too much about different things: 0 = Not at all Trouble relaxin = Not at all Being so restless that it is hard to sit still: 0 = Not at all Becoming easily annoyed or irritable: 0 = Not at all Feeling afraid as if something awful might happen: 0 = Not at all Total KIT-7 score (0-4 normal; 5-9 mild; 10-14 moderate; 15-21 severe): 0 Source: Developed by Drs. David Hurtado, Afshan Miranda, Quintin Winkler and colleagues, with an educational mary from [employer]. KIT-7 Assessment Billing KIT-7 Assessment Tool: KIT-7 Assessment 80975 Review of Systems Const All systems reviewed & are unremarkable except as noted in HPI and below Eyes Reports no additional complaints ENT Reports no additional complaints Card Reports no additional complaints Resp Reports no additional complaints GI Reports no additional complaints Reports no additional complaints Physical exam (Primary Care) Vital Signs: Last Vital Signs Temp 97.7 F 09/01/24 11:17 Pulse 71 09/01/24 11:17 Resp 18 09/01/24 11:17 BP 106/66 09/01/24 11:17 Pulse Ox 97 09/01/24 11:17 Oxygen Delivery Method Room Air 09/01/24 11:17 BMI result Body Mass Index 21.9 Tobacco/Smoking Status: Tobacco use Status Tobacco use date assessed 09/01/24 09/01/24 11:29 Patient Tobacco Use Status Never used Tobacco 09/01/24 11:18 e-Cigarette/Vaping Use Never Used 09/01/24 11:18 PHQ-9: PHQ-9 Score PHQ-9: Total score 2 09/01/24 12:23 Depression Screening Interpretation: Negative Thrive Assessment: Date of Thrive Assessment Date Thrive assessed 09/01/24 09/01/24 11:29 Currently or been in a relationship where the following occur: No concerns reported Const General: no acute distress HENMT Head: Yes normal to inspection Neck Neck: Yes supple Resp Effort & Inspection: normal respiratory effort Auscultation: clear to auscultation bilaterally Cardio Rhythm: regular rhythm Heart sounds: S1 normal heart sound present and S2 normal heart sound present GI Inspection: Yes normal to inspection Coding Level of Care Code Est Pt Level 4 (45503) Diagnoses Hyperlipidemia E78.5 Vitamin D deficiency E55.9 Anxiety F41.9 Hypothyroid E03.9 Additional Codes KIT-7 Assessment Billing - KIT-7 Assessment Tool: KIT-7 Assessment [id number] ([id number]) PHQ-9 - 98794 - PHQ-9 Billing: Yes ([id number]) Assessment & Plan Assessment & Plan (1) Hyperlipidemia: Code(s): E78.5 - Hyperlipidemia, unspecified Category: Medical Plan: Continue simvastatin, return for fasting blood work (2) Vitamin D deficiency: Code(s): E55.9 - Vitamin D deficiency, unspecified Category: Medical Plan: Continue vitamin-D. (3) Anxiety: Code(s): F41.9 - Anxiety disorder, unspecified Category: Medical Plan: Continue sertraline (4) Hypothyroid: Comment: Borderline elevated TSH 10/2023 Continue to monitor Code(s): E03.9 - Hypothyroidism, unspecified Category: Medical Plan: Check TSH level Orders: Orders Lipid Panel Today E55.9 - Vitamin D deficiency, unspecified, E78.5 - Hyperlipidemia, unspecified Comprehensive [place]. Panel Fast Today E55.9 - Vitamin D deficiency, unspecified, E78.5 - Hyperlipidemia, unspecified Complete Blood Count Auto Diff Today E55.9 - Vitamin D deficiency, unspecified, E78.5 - Hyperlipidemia, unspecified Vitamin D 25-OH Total Today E55.9 - Vitamin D deficiency, unspecified, E78.5 - Hyperlipidemia, unspecified TSH reflex Free T4 Today E55.9 - Vitamin D deficiency, unspecified, E78.5 - Hyperlipidemia, unspecified Medications: Changed From gabapentin 300 mg PO BID 180 caps 3RF To gabapentin 300 mg PO .qd 90 caps 3RF Refilled simvastatin 40 mg PO BEDTIME 90 tabs 3RF lorazepam 0.5 mg PO DAILY PRN 30 tabs 0RF anxiety NS Discontinued hydroxyzine HCl Discontinued Reason: Doctor's Order 10 mg PO BEDTIME PRN 60 tabs 0RF sleep
== END 2024-09-01 12:36 | disposition home or self-care (01) ==
LOC: HO.HMCC 11:14
PROVIDERS: PCP Internal Medicine; Visit Provider Internal Medicine
DX: E78.5 Hyperlipidemia, unspecified (principal); E55.9 Vitamin D deficiency, unspecified; F41.9 Anxiety disorder, unspecified; E03.9 Hypothyroidism, unspecified

== ENCOUNTER → 2024-09-01 11:13 | Outpatient (BNVA) | payer MEDICARE, SELFPAY | PROVIDERS: PCP Internal Medicine; Visit Provider Internal Medicine | DX: E78.5 Hyperlipidemia, unspecified (principal); F41.9 Anxiety disorder, unspecified; E03.9 Hypothyroidism, unspecified; E55.9 Vitamin D deficiency, unspecified | CPT/HCPCS: 96127; 99212 ==